=== PATIENT | female | born 1995 | race Caucasian/White ===

== ENCOUNTER 2016-05-08 20:49 | Emergency (ER) | payer SELFPAY ==
[~2016-05-08] VITALS: Ht 160 cm; Wt 66.0 kg
[~2016-05-08 20:49] MED LIST: Z.0.NO CURRENT MEDS
[2016-05-08 20:53] VITALS: BP 114/92; PULSE 124; RESP 16; TEMP 98.1; O2SAT 98
[2016-05-08] MEDS ORDERED: VALT1TAB PO (23:41)
[2016-05-09] MEDS ORDERED: MACR100C2 PO (01:00)
[2016-05-09] MEDS ORDERED: METR-1 PO (01:19)
== END 2016-05-08 22:00 | disposition left against medical advice (07) ==
LOC: NED 20:49
DX: N94.9 Unspecified condition associated with female genital organs and menstrual cycle (principal)
CPT/HCPCS: 99281

== ENCOUNTER 2016-05-08 22:48 | Emergency (ER) | payer SELFPAY ==
[2016-05-08 22:50] VITALS: BP 136/60; PULSE 113; RESP 16; TEMP 98.4; O2SAT 98
[2016-05-08] MEDS ORDERED: VALT1TAB PO (23:41)
--- NOTE | 2016-05-08 23:42 | PD ---
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 She reports that the vaginal discharge has a strong odor and is clear in color. She denies having any new sexual partners. She reports that she is in a monogamous relationship. She denies ever having a pelvic examination previously. She denies ever being previously. Today she also noticed that she has a ball on her left hand on the palm. A shunt reports that the sores are painful. She denies having any urinary symptoms associated with this. The patient denies having any recent fevers, cough, congestion, neck pain, chest pain, shortness of breath, abdominal pain, vomiting, diarrhea, urinary symptoms, or neurologic symptoms. LMP: April 13, 2016 [facility] Past Medical History Narrative Medical The patient's past medical history is reportedly none. Medical History: Denies Significant Hx ?: Not LMP: 04/13/16 Past Surgical History Narrative Surgical The patient's past surgical history is significant for none. Surgical History: No Previous Surgery Social History Alcohol Use: No Tobacco Use: No Substance Use: No Allergies-Medications (Allergen,Severity, Reaction): Coded Allergies: No Known Allergies (Verified , 05/08/16) Reported Meds & Prescriptions Reported Meds & Active Scripts Active Flagyl (Metronidazole) 500 Mg Tab 500 Mg PO BID 7 Days Macrobid (Nitrofurantoin Monoh/Nitrofur Macro) 100 Mg Cap 100 Mg PO BID 7 Days Valtrex (Valacyclovir HCl) 1 Gm Tab 1,000 Mg PO TID Review of Systems Except as stated in HPI: all other systems reviewed are Neg General / Constitutional: No: Fever Eyes: No: Visual changes HENT: No: Headaches Cardiovascular: No: Chest Pain or Discomfort Respiratory: No: Shortness of Breath Gastrointestinal: No: Abdominal Pain Genitourinary: Positive: Pelvic Pain, Discharge, Other (vaginal sores), No: Dysuria Musculoskeletal: No: Pain Skin: Positive Rash Neurologic: No: Weakness Psychiatric: No: Depression Endocrine: No: Polydipsia Hematologic/Lymphatic: No: Easy Bruising Physical Exam Narrative General: The patient is a well-developed well-nourished female in no acute distress. Head and Neck exam: Head is normocephalic atraumatic. Eyes: EOMI, pupils are equal round and reactive to light. Nose: Midline septum with pink mucous membranes Mouth: Dentition unremarkable. Moist mucus membranes. Posterior oropharynx is not erythematous. No tonsillar hypertrophy. Uvula midline. Airway patent. Neck: No palpable lymphadenopathy. No nuchal rigidity. No thyromegaly. Cardiovascular: Regular rate and rhythm without murmurs, gallops, or rubs. Lungs: Clear to auscultation bilaterally. No wheezes, rhonchi, or rales. Abdomen: Soft, without tenderness to palpation in all 4 quadrants of the abdomen. No guarding, rebound, or rigidity. Normal bowel sounds are audible. Extremities: No clubbing, cyanosis, or edema. 2+ pulses in all 4 extremities. Back: No spinous process tenderness to palpation. No costovertebral angle tenderness to palpation. Neurologic Exam: Grossly nonfocal. Skin Exam: On examination of the left palm, the patient has a pustule noted along the volar aspect over the thenar eminence. She reports that this area is itchy. Intact skin that is warm and dry. Gynecologic exam: The patient was placed in the dorsal lithotomy position. Her external genitalia were examined. She has erythematous papules with overlying superficial ulceration. The areas of superficial ulceration continued down from the mons pubis to the labia majora and minora bilaterally. Worse on the right compared to the left. These areas are suspicious for herpes. The speculum was placed into her vagina and the cervix was identified. She had a physiologic appearing clear white discharge. No cervical friability. On Bimanual exam: she has no cervical motion tenderness. No adnexal tenderness or prominence noted on palpation. No uterine tenderness or enlargement noted on palpation. Data Data Last Documented VS Vital Signs Date Time Temp Pulse Resp B/P Pulse Ox O2 Delivery O2 Flow Rate FiO2 05/08/16 23:34 20 05/08/16 22:50 98.4 113 136/60 98 Room Air Orders Gc And Chlamydia Pcr (05/08/16 23:12) Wet Prep Profile (05/08/16 23:12) Urinalysis - C+S If Indicated (05/08/16 23:12) Herpes Simplex Virus Culture (05/08/16 23:12) Ed Urine Pregnancytest Poc (05/08/16 23:12) Labs Laboratory Tests Test 05/08/16 05/08/16 00:20 23:50 Clue Cells (Wet Prep) PRESENT Vaginal Trichomonas (Wet Prep) NONE SEEN Vaginal Yeast (Wet Prep) NONE SEEN Urine Color YELLOW Urine Turbidity HAZY Urine pH 6.5 Urine Specific [place] 1.019 Urine Protein 30 mg/dL Urine Glucose (UA) NEG mg/dL Urine Ketones 10 mg/dL Urine Occult Blood SMALL Urine Nitrite NEG Urine Bilirubin NEG Urine Urobilinogen 2.0 MG/DL Urine Leukocyte Esterase LARGE Urine RBC 11 /hpf Urine WBC 28 /hpf Urine Squamous Epithelial 3 /hpf Cells Urine Bacteria RARE /hpf Urine Mucus MANY /lpf Microscopic Urinalysis Comment CULT NOT INDICATED MDM Medical Decision Making Medical Screen Exam Complete: Yes Emergency Medical Condition: Yes Medical Record Reviewed: Yes Interpretation(s) Laboratory Tests Test 05/08/16 05/08/16 00:20 23:50 Clue Cells (Wet Prep) PRESENT Vaginal Trichomonas (Wet Prep) NONE SEEN Vaginal Yeast (Wet Prep) NONE SEEN Urine Color YELLOW Urine Turbidity HAZY Urine pH 6.5 Urine Specific [place] 1.019 Urine Protein 30 mg/dL Urine Glucose (UA) NEG mg/dL Urine Ketones 10 mg/dL Urine Occult Blood SMALL Urine Nitrite NEG Urine Bilirubin NEG Urine Urobilinogen 2.0 MG/DL Urine Leukocyte Esterase LARGE Urine RBC 11 /hpf Urine WBC 28 /hpf Urine Squamous Epithelial 3 /hpf Cells Urine Bacteria RARE /hpf Urine Mucus MANY /lpf Microscopic Urinalysis Comment CULT NOT INDICATED Differential Diagnosis Herpes simplex, versus viral, versus gonorrhea, versus chlamydia Narrative Course During the course of the patients emergency department visit, the patients history, examination, and differential diagnosis were reviewed with the patient. The patient will have a pelvic examination done. GC and chlamydia will be collected, a wet prep will be collected, viral herpes swab will be collected. The patient was provided Rocephin 250 IM, Zithromax 1 g by mouth 1, Valtrex 1 g by mouth. The patients laboratory studies were reviewed and remarkable for a urinalysis that shows pyuria and hematuria with bacteria suggestive of a urinary tract infection. Wet prep is positive for clue cells. The patient will be discharged home with a prescription for Macrobid, Valtrex, and Flagyl. She was instructed to follow-up with a master merchandiser. She was given the name of the master merchandiser gimp buttonhole machine operator, Dr. Diaz for follow-up. The patient is resting comfortably and feels better, is alert and in no distress. The patients results and examination findings were discussed with the patient. The repeat examination is unremarkable and benign. The history, exam, diagnostic testing, and current condition do not suggest any significant pathology to warrant further testing, continued ED treatment, admission, or surgical evaluation at this point. The vital signs have been stable. The patient does not have uncontrollable pain, intractable vomiting, or other significant symptoms. The patient's condition is stable and appropriate for discharge. The patient will pursue further outpatient evaluation with a primary care physician or other designated or consulting physician as indicated in the discharge instructions. The patient expressed understanding and was agreeable with this plan. Diagnosis Primary Impression: Vaginitis Qualified Code: N76.0 - Acute vaginitis Additional Impressions: Genital lesion, female Bacterial vaginosis Urinary tract infection Qualified Code: N30.01 - Acute cystitis with hematuria Referrals: Wrapping Machine Tender Patient Instructions: Bacterial Vaginosis (ED), General Instructions, Genital Herpes Simplex (ED), Urinary Tract Infection in Women (ED) Med/Other Pt SpecificInfo: Prescription(s) given Scripts Metronidazole (Flagyl)500 Mg [id number] Mg PO BID 7 Days Ref 0 Prov:Felicia Lambert MD 05/09/16 Nitrofurantoin Monohydrate Macrocrystals (Macrobid)100 Mg [id number] Mg PO BID 7 Days Ref 0 Prov:Felicia Lambert MD 05/09/16 Valacyclovir (Valtrex)1 Gm Tab1,000 Mg PO TID #20 TAB Ref 0 Prov:Felicia Lambert MD 05/08/16 Disposition: DISCHARGE HOME Condition: Stable Felicia Lambert MD May 08, 2016 23:42
[2016-05-09 00:12] LABS: BACTERIA, URINE RARE /hpf; BLOOD, URINE SMALL (NEG); COMMENT (UR) CULT NOT INDICATED; CULTURE IF INDICATED CULT NOT INDICATED; GLUCOSE,URINE NEG (NEG); KETONE, URINE 10 mg/dL (NEG); MUCUS URINE MANY /lpf (OCC); NITRITE,URINE NEG (NEG); PH, URINE 6.5 (5.0-8.5); SQUAMOUS EPITHELIAL CELL URINE 3 /hpf (0-5); URINE COLOR YELLOW (YELLW/STRAW)
[2016-05-09] MEDS ORDERED: MACR100C2 PO (01:00)
[2016-05-09] MEDS ORDERED: METR-1 PO (01:19)
[2016-05-09 02:52] LABS: CHLAMYDIA PCR NOT DETECTED (NOT DETECT); NEISSERIA PCR NOT DETECTED (NOT DETECT)
== END 2016-05-09 03:14 | disposition home or self-care (01) ==
LOC: NEPC 22:48
DX: N76.0 Acute vaginitis (principal); N39.0 Urinary tract infection, site not specified; B97.89 Other viral agents as the cause of diseases classified elsewhere
CPT/HCPCS: 81001; 84703; 87210; 87255; 87491; 87591; 99283